=== PATIENT | female | born 1950 | race Caucasian/White ===

== ENCOUNTER 2017-01-05 16:14 | Emergency (ER) | payer OTHER ==
[~2017-01-05] VITALS: Wt 96.5 kg
[~2017-01-05 16:14] MED LIST: ALPR0.254 PO; ASPI-676 PO; ATEN-138 PO
[2017-01-05] MEDS ORDERED: PRED20TA PO (17:10)
[2017-01-05] MEDS ORDERED: FAMO-96 PO (17:10)
--- NOTE | 2017-01-05 17:10 | ERD ---
ER Documentation Chief Complaint Date/Time DATE: 01/05/17 Chief Complaint Rash HPI The patient 66-year-old female who presents the Emergency Department with complaint of a new pruritic skin rash. The patient reports that her symptoms initially began approximately one week ago, with onset of itching at night, particularly to the hands and feet. Over the past 2 days she has developed a new erythematous maculopapular rash that initially began on the back, spreading to the extremities and thorax. She reports associated itching, but otherwise denies any weeping, drainage, bleeding, crepitus or tenderness. The patient has tried [id number] Loratadine and hydrocortisone cream, with mild relief of symptoms, though continues to experience the rash. She denies any new exposures. Denies any new foods or drink exposures. Denies new plant or animal exposures. Denies exposure to new soaps, detergents, lotions, shampoos, conditioners, clothing. Denies lip or tongue swelling, change in phonation, difficulty tolerating oral secretions, throat tightness, shortness of breath, wheezing. Denies recent travel. Denies fevers, sweats, chills, nausea, vomiting chest pain, palpitations. Denies any other complaints at this time. ROS All systems reviewed and are negative except as per history of present illness. Medications Home Meds Active Scripts Permethrin* (Elimite*) 5% Cr, 1 APPLIC TOP ONCE, #2 TUB Repeat in 14 days if itchiness persists Prov:RONALD MAURER PA-C 01/05/17 Diphenhydramine Hcl* (Benadryl*) 25 Mg Cap, 25 MG PO Q6, #30 CAP Prov:RONALD MAURER PA-C 01/05/17 Famotidine* (Pepcid*) 20 Mg Tablet, 20 MG PO BID for 5 Days, TAB Prov:RONALD MAURER PA-C 01/05/17 Prednisone* (Prednisone*) 20 Mg Tab, 40 MG PO DAILY for 5 Days, TAB Prov:RONALD MAURER PA-C 01/05/17 Reported Medications Alprazolam (Xanax) 0.25 Mg Tab, 0.25 MG PO PRN 01/14/11 Aspirin (Heather Child) 81 Mg Chew, 81 MG PO DAILY 01/14/11 Atenolol (Tenormin) 25 Mg Tab, 25 MG PO DAILY 01/14/11 Allergies Allergies: Coded Allergies: No Known Allergy (Unverified , 01/05/17) PMhx/Soc History of Surgery: No Anesthesia Reaction: No Hx Neurological Disorder: No Hx Respiratory Disorders: No Hx Cardiac Disorders: Yes (HTN, FAST HR) Hx Psychiatric Problems: No Hx Miscellaneous Medical Probl: Yes (HIGH CHOLESTEROL) Hx Alcohol Use: No Hx Substance Use: No Hx Tobacco Use: No Physical Exam Vitals Vital Signs Date Time Temp Pulse Resp B/P Pulse Ox O2 Delivery O2 Flow Rate FiO2 01/05/17 16:17 98.6 80 17 170/80 96 Physical Exam GENERAL: Well-developed, well-nourished, female, in no acute distress. Nontoxic. Well-appearing. HEENT: Head is normocephalic, atraumatic. No scleral pallor or icterus. Pupils equal, round and reactive to light. Extraocular movements intact. Conjunctiva pink. Moist mucous membranes. Clear oropharynx. No lip or tongue swelling. No pharyngeal erythema or exudates. Uvula is midline. No trismus. No stridor. No excessive drooling. Phonation is normal. No submandibular swelling. No brawny induration. NECK: Supple. No masses, no tenderness, no lymphadenopathy. Trachea midline. RESPIRATORY: Lungs are clear to auscultation bilaterally. No rales, rhonchi or wheezing. Equal breath sounds. Normal expiratory effort. CARDIOVASCULAR: Regular rate and rhythm. S1 and S2 normal. Distal pulses are palpable, 2+ bilaterally. Capillary refill is less than 2 seconds. GASTROINTESTINAL: Abdomen is soft, non-tender, and non-distended. BACK: No midline tenderness. EXTREMITIES: No clubbing, cyanosis, or edema. Normal skin perfusion. Joints non- tender, no joint effusion. Moving all extremities. Muscle tone is normal. No focal swelling or erythema. NEUROLOGIC: The patient is alert, awake, and oriented x 3. No focal neurologic deficits. INTEGUMENT: Fine, erythematous, maculopapular pruritic rash with few urticarial lesions to the extremities, back, chest and abdomen. Few lesions to interdigital web spaces and periumbilical area. No skip or target lesions. No pain away from site of rash. No crepitus. No cellulitis or lymphatic streaking. No bullae, vesicles or ulcerations. PSYCHIATRIC: Cooperative. Appropriate. Results 24 hrs Current Medications Medications (Trade) Dose Ordered Sig/Tony Route PRN Reason Start Time Stop Time Status Last Admin Dose Admin Methylprednisolone Sodium Succinate (Solu-Medrol) 125 mg ONCE ONCE IM 01/05/17 17:30 01/05/17 17:31 DC 01/05/17 17:51 Diphenhydramine HCl (Benadryl) 25 mg ONCE ONCE PO 01/05/17 17:30 01/05/17 17:31 DC 01/05/17 17:50 Famotidine (Pepcid) 20 mg ONCE ONCE PO 01/05/17 17:30 01/05/17 17:31 DC 01/05/17 17:50 Procedures/MDM This patient is a 66-year-old female presenting to the Emergency Department with new pruritic maculopapular rash to her extremities, chest, abdomen and back. Otherwise, no target lesions, skip lesions, crepitus, skin sloughing, urticaria, oozing, central clearing were noted. Vital signs were stable. The patient's oropharynx and airway were patent, and she exhibited no breathing difficulties, wheezing, tongue swelling or lip swelling. No evidence of angioedema, airway compromise, inability to handle oral secretions or stridor. Patient's phonation is normal. No wheezing auscultated on physical examination. Circulation was appropriate, with no systemic signs of anaphylaxis, no hypotension. No associated purpura or generalized petechiae. The differential diagnosis includes, but is not limited to, allergic reaction, insect bite, fungal infection, cellulitis, MRSA, impetigo, shingles, herpes simplex virus, contact dermatitis, eczema, infestation, impetigo, systemic infection, erythema multiforme, burn, abscess, dermatitis, viral syndrome, candidiasis, medication reaction, Alex Michael syndrome, epidermolysis bullosa, toxic epidermal necrolysis, meningococcemia, toxic shock syndrome, hand foot and mouth disease, mononucleosis, heat rash. The patient had no crepitus, skin lesions or pain away from site of rash concerning for necrotizing fasciitis or myositis. No mucosal involvement or appearance concerning for Moises Michael's syndrome or TENS. No airway compromise or concern for anaphylaxis. No indication of angioedema. Clinical presentation not consistent with erythema nodosum, lyme disease, fungal infection or erythema migrans. After rest and administration of Solu-Medrol, Benadryl and Pepcid, the patient reports no new complaints and remained stable with appropriate vital signs and no signs of respiratory distress. Upon my review and interpretation of the patient's presentation and overall ER course, I believe the patient's symptoms are most consistent with skin rash, uncertain etiology. It is possible that the patient's rash is an allergic reaction, though at this time no known precipitant is identified. Additionally, given onset of symptoms with nighttime pruritus to extremities, will cover patient for possible scabies. The patient is in stable condition and therefore can be discharged home with prescriptions for Permethrin, Prednisone, Benadryl and Pepcid, and strict return precautions for signs of deteriorating or worsening condition. The patient is advised to follow up with a primary care provider within 2-3 days for reevaluation and further management, or return to the ER sooner for worsening symptoms. I shared my medical decision making and plan with the patient at length and in great detail, and he verbally understands and agrees with the plan for further observation and care as an outpatient. At the time of discharge all questions were answered. Departure Diagnosis: Primary Impression: Dermatitis Condition: Stable Patient Instructions: Dermatitis, Non-Specific, Self-Care for Skin Rashes Additional Instructions: Llame al doctor MAANA y sixto sandeep LAMAR PARA DENTRO DE 2-3 SALVADOR.Dgale a la secretaria que nosotros le instruimos hacer esta lamar.Avise o llame si trevino condicin se empeora antes de la lamar. Regresa aqui si peor o no mejor. RONALD MAURER PA-C Jan 05, 2017 17:09 RONALD MAURER PA-C Jan 05, 2017 17:09
[2017-01-05] MEDS ORDERED: BEN25 PO (17:11)
[2017-01-05] MEDS ORDERED: ELIM TOP (17:12)
[2017-01-05] MEDS ORDERED: METHYLPREDNISOLONE 125 MG INJ IM ONE (17:30)
[2017-01-05] MEDS ORDERED: DIPHENHYDRAMINE 25 MG CAP PO ONE (17:30)
[2017-01-05] MEDS ORDERED: FAMOTIDINE 20 MG TAB PO ONE (17:30)
== END 2017-01-05 18:15 | disposition home or self-care (01) ==
LOC: FTE 16:14
DX: L30.9 Dermatitis, unspecified (principal); I10 Essential (primary) hypertension
CPT/HCPCS: 96372; 99284; J2930